=== PATIENT | male | born 1960 | race American Indian/Alaskan Native ===

== ENCOUNTER 2018-08-13 23:13 | Emergency (ER) | payer SELFPAY ==
[~2018-08-13] VITALS: Ht 175.3 cm; Wt 99.8 kg
[2018-08-13] MEDS ORDERED: ALBUTEROL SULF 0.083% NEB SOLN 3 ML NEB NEB STA (23:21)
[2018-08-13] MEDS ORDERED: METHYLPREDNISOLONE SOD SUCC 125 MG/2ML VIAL IV ONE (23:30)
[2018-08-13] MEDS ORDERED: IPRATROPIUM BROMIDE 0.02% 2.5 ML NEB NEB ONE (23:30)
[2018-08-13 23:56] LABS: BASOPHILS # (AUTO) 0.1 (0.0-0.1); BASOPHILS % 0.8 % (0.0-1.0); EOSINOPHILS # (AUTO) 1.2 (0.0-0.4); HEMATOCRIT 41.9 % (38.2-49.6); HEMOGLOBIN 13.8 g/dL (14.0-18.0); LYMPHOCYTES # (AUTO) 2.8 (1.0-3.2); LYMPHOCYTES % 16.7 % (18.0-39.1); MEAN CORPUSCULAR HEMOGLOBIN 28.8 pg (28-32); MEAN CORPUSCULAR HGB CONC 32.9 g/dL (31-35); MEAN CORPUSCULAR VOLUME 87.3 fL (81-99); NEUTROPHILS # (AUTO) 11.5 (2.1-6.9); NEUTROPHILS % 69.1 % (38.7-80.0); PLATELET COUNT 307 x10e3/uL (140-360); RED CELL DISTRIBUTION WIDTH 13.2 % (11.7-14.4)
[2018-08-14 00:17] LABS: ALANINE AMINOTRANSFERASE 37 IU/L (0-55); ALBUMIN 3.6 g/dL (3.5-5.0); ALKALINE PHOSPHATASE 113 IU/L (40-150); ANION GAP 13.6 mmol/L (8-16); BLOOD UREA NITROGEN 11 mg/dL (7-26); BUN/CREATININE RATIO 13 (6-25); CARBON DIOXIDE 28 mmol/L (22-29); CHLORIDE 99 mmol/L (98-107); CREATINE KINASE 50 IU/L (30-200); CREATININE, SERUM 0.88 mg/dL (0.72-1.25); EST GLOMERULAR FILTRATION RATE > 60 ML/MIN (60-); GLUCOSE 164 mg/dL (74-118); POTASSIUM 3.6 mmol/L (3.5-5.1); SODIUM 137 mmol/L (136-145)
--- NOTE | 2018-08-14 00:28 | Diagnostic Imaging Report ---
Examination: Single AP view of the chest. COMPARISON: None. INDICATION: Asthma DISCUSSION: Lines/tubes: None. Lungs: The lungs are well inflated and clear. No pneumonia or pulmonary edema. Pleura: No pleural effusion or pneumothorax. Heart and mediastinum: The heart and the mediastinum are unremarkable. Bones and soft tissues: No acute bony abnormalities. IMPRESSION: 1. No acute cardiopulmonary abnormalities. Signed by: Dr. Octavio Ramírez M.D. on 08/14/2018 12:25 AM
[2018-08-14] MEDS ORDERED: SODIUM CHLORIDE 0.9% 1000ML 1,000 ML IV ONE (01:45)
[2018-08-14] MEDS ORDERED: ALBUTEROL SULF 0.083% NEB SOLN 3 ML NEB NEB STA (02:29)
[2018-08-14] MEDS ORDERED: IPRATROPIUM BROMIDE 0.02% 2.5 ML NEB NEB ONE (02:30)
[2018-08-14 03:13] VITALS: BP 121/65
== END 2018-08-14 03:45 | disposition home or self-care (01) ==
LOC: ER 23:13
DX: R06.00 Dyspnea, unspecified (principal); J45.31 Mild persistent asthma with (acute) exacerbation; F17.210 Nicotine dependence, cigarettes, uncomplicated
CPT/HCPCS: 36415; 71045; 80053; 82550; 82553; 83880; 84484; 85025; 93005; 94640 ×2; 96374; 99284; J2930; J7030

== ENCOUNTER 2024-07-24 15:34 | Inpatient (IN) | payer MEDICAID, MEDICARE ==
[~2024-07-24] VITALS: Ht 175.3 cm; Wt 106.1 kg
[~2024-07-24 15:34] MED LIST: AMITRIPTYLINE H25 MG; CELECOXIB200 MG; CEPHALEXIN500 MG PO; DILTIAZEM 24HR240 M1; FA-80.8 MG; HUMIRA40 MG/0.1; HYDROCODON-ACE1 EA11 PO; HYDROXYCHLOROQ200 MG PO; LOSARTAN-HCTZ1 EAC1; METHOTREXATE2.5 MG; PREDNISONE10 MG; PREGABALIN75 MG PO; TIZANIDINE HCL4 MG; TRELEGY ELLIPT1 EACH; ULTRAM 50MG50 MG; VENTOLIN HFA18 GM INH
[2024-07-24 15:55] VITALS: TEMP 97.7
[2024-07-24] MEDS: METHYLPREDNISOLONE SOD SUCC 125 MG/2ML VIAL IV ONE (16:36)
[2024-07-24] MEDS: ALBUTEROL/IPRATROPIUM 3 ML NEB NEB PRN (16:41)
[2024-07-24] MEDS: Vancomycin IV 1 GM in SODIUM CHLORIDE 0.9% 250ML 250 ML IV ONE (18:11)
[2024-07-24] MEDS: SODIUM CHLORIDE 0.9% 1000ML 1,000 ML IV SCH (18:12)
[2024-07-24 18:47] LABS: CREATINE KINASE 61 IU/L (30-200)
[2024-07-24 18:54] VITALS: PULSE 61; RESP 20
[2024-07-24 18:55] LABS: TROPONIN I < 0.001 ng/mL (0-0.300)
[2024-07-24 19:38] VITALS: BP 110/69; PULSE 92; RESP 20; TEMP 98.9; O2SAT 100
[2024-07-24 20:56] VITALS: PULSE 67; RESP 18; O2SAT 97
[2024-07-24] MEDS: ALBUTEROL SULF 0.083% NEB SOLN 3 ML NEB NEB SCH (20:57)
[2024-07-24] MEDS: IPRATROPIUM BROMIDE 0.02% 2.5 ML NEB NEB SCH (20:58)
[2024-07-24 21:00] VITALS: BP 110/69; PULSE 67; RESP 18; TEMP 98.9; O2SAT 97
[2024-07-24] MEDS: ASPIRIN 81 MG CHEW TAB PO ONE ×2 (23:46→23:49)
[2024-07-24] MEDS: CEFEPIME 2 GM in SODIUM CHLORIDE 0.9% 100 ML IV ONE ×2 (23:47→23:49)
[2024-07-24 23:50] VITALS: BP 110/69; PULSE 61; RESP 16; TEMP 98.9; O2SAT 97
[2024-07-25] VITALS (14 sets, daily range): BP systolic 96–130; BP diastolic 60–81; PULSE 55–99; RESP 17–20; TEMP 96–98.1; O2SAT 92–100
[2024-07-25 05:10] LABS: HEMATOCRIT 35.1 % (38.2-49.6); HEMOGLOBIN 11.5 g/dL (14.0-18.0); LYMPHOCYTES # (AUTO) 0.8 (1.0-3.2); MEAN CORPUSCULAR HEMOGLOBIN 30.1 pg (28-32); MEAN CORPUSCULAR HGB CONC 32.8 g/dL (31-35); MEAN CORPUSCULAR VOLUME 91.9 fL (81-99); MONOCYTES # (AUTO) 0.1 (0.2-0.8); MONOCYTES % 1.2 % (4.4-11.3); NEUTROPHILS % 86.9 % (38.7-80.0); PLATELET COUNT 182 x10e3/uL (140-360); RED BLOOD COUNT 3.82 x10e6/uL (4.3-5.7); RED CELL DISTRIBUTION WIDTH 14.3 % (11.7-14.4); WHITE BLOOD COUNT 6.92 x10e3/uL (4.8-10.8)
[2024-07-25 05:44] LABS: ANION GAP 16.5 mmol/L (8-16); CALCIUM 9.2 mg/dL (8.4-10.2); CREATININE, SERUM 2.73 mg/dL (0.72-1.25); POTASSIUM 4.5 mmol/L (3.5-5.1)
[2024-07-25 06:18] LABS: TROPONIN I 0.011 ng/mL (0-0.300)
[2024-07-25] MEDS ORDERED: CYCLOBENZAPRINE10 MG PO (07:33)
[2024-07-25] MEDS ORDERED: LIDOCAINE 4% PATCH TP PRN (11:15)
[2024-07-25] MEDS ORDERED: DIPHENHYDRAMINE HCL 25 MG CAP PO PRN (11:15)
[2024-07-25] MEDS ORDERED: HYDRALAZINE HCL 20 MG/ML VIAL IV PRN (11:15)
[2024-07-25] MEDS ORDERED: ONDANSETRON HCL INJ 2MG/ML 2ML 2 MG/ML VIAL IV PRN (11:15)
[2024-07-25] MEDS ORDERED: SIMETHICONE 80 MG CHEW PO PRN (11:15)
[2024-07-25] MEDS ORDERED: DEXTROSE 50% SYRINGE 50 ML IV PRN (11:15)
[2024-07-25] MEDS ORDERED: BENZONATATE 100 MG CAP PO PRN (11:15)
[2024-07-25] MEDS ORDERED: POTASSIUM CHLORIDE 20 MEQ TAB CR PO PRN (11:15)
[2024-07-25] MEDS ORDERED: ALBUTEROL/IPRATROPIUM 3 ML NEB NEB PRN (11:15)
[2024-07-25] MEDS ORDERED: ACETAMINOPHEN 325 MG TAB PO PRN (11:15)
[2024-07-25] MEDS ORDERED: Doxycycline IV 100 MG in SODIUM CHLORIDE 0.9% 100 ML IV SCH (11:45)
[2024-07-25] MEDS: PANTOPRAZOLE SODIUM 20 MG TABLET.DR PO SCH (13:12)
[2024-07-25] MEDS: AZITHROMYCIN 250 MG TAB PO ONE (13:12)
[2024-07-25] MEDS ORDERED: CALCIUM CARBONATE 500 MG CHEWABLE TABS PO PRN (14:45)
[2024-07-25] MEDS: METHYLPREDNISOLONE SOD SUCC 40 MG/ML VIAL 1ML IV SCH (15:00)
[2024-07-25] MEDS: ENOXAPARIN SOD INJ 40 MG/0.4 ML SYR SC SCH (17:24)
[2024-07-25] MEDS: HYDROXYCHLOROQUINE SULFATE 200 MG TAB PO SCH (17:24)
[2024-07-25] MEDS: PREGABALIN 75 MG CAP PO SCH (17:24)
[2024-07-25] MEDS ORDERED: Vancomycin IV 1 GM in SODIUM CHLORIDE 0.9% 250ML 250 ML IV SCH (17:30)
[2024-07-25 17:41] LABS: TROPONIN I 0.022 ng/mL (0-0.300)
[2024-07-25] MEDS ORDERED: HYDROCODONE/APAP 5MG-325MG TAB PO PRN (21:45)
[2024-07-25] MEDS: HYDROCODONE/APAP 10MG-325MG TAB PO PRN (22:05)
[2024-07-26] VITALS (10 sets, daily range): BP systolic 106–117; BP diastolic 57–78; PULSE 60–81; RESP 16–22; TEMP 97.3–98.2; O2SAT 96–100
[2024-07-26] MEDS: Vancomycin IV 1 GM in SODIUM CHLORIDE 0.9% 250ML 250 ML IV SCH (00:02)
[2024-07-26 05:15] LABS: HEMATOCRIT 30.4 % (38.2-49.6); LYMPHOCYTES # (AUTO) 0.8 (1.0-3.2); LYMPHOCYTES % 7.4 % (18.0-39.1); MEAN CORPUSCULAR HEMOGLOBIN 30.5 pg (28-32); MEAN CORPUSCULAR HGB CONC 32.9 g/dL (31-35); MEAN CORPUSCULAR VOLUME 92.7 fL (81-99); MONOCYTES # (AUTO) 0.4 (0.2-0.8); MONOCYTES % 3.5 % (4.4-11.3); NEUTROPHILS # (AUTO) 9.7 (2.1-6.9); PLATELET COUNT 161 x10e3/uL (140-360); RED BLOOD COUNT 3.28 x10e6/uL (4.3-5.7); RED CELL DISTRIBUTION WIDTH 15.1 % (11.7-14.4); WHITE BLOOD COUNT 11.01 x10e3/uL (4.8-10.8)
[2024-07-26 05:45] LABS: ANION GAP 14.5 mmol/L (8-16); CALCIUM 9.3 mg/dL (8.4-10.2); CREATININE, SERUM 1.92 mg/dL (0.72-1.25); POTASSIUM 4.5 mmol/L (3.5-5.1)
[2024-07-26 07:35] LABS: ABG HCO3 26 mmol/L (22-26); ABG PCO2 47 mmHg (35-45); ABG PH 7.35 (7.35-7.45); ABG PO2 34 mmHg (80-105); ABG TCO2 27
[2024-07-26] MEDS: DOCUSATE SODIUM 100 MG CAP PO PRN (08:22)
[2024-07-26] MEDS: PANTOPRAZOLE SOD 40 MG TABEC PO SCH (08:22)
[2024-07-26] MEDS: AZITHROMYCIN 250 MG TAB PO SCH (08:22)
[2024-07-26] MEDS: AMITRIPTYLINE HCL 25 MG TAB PO SCH ×2 (08:23→22:30)
[2024-07-26] MEDS: DILTIAZEM HCL ER 120 MG CAP PO SCH (08:23)
[2024-07-26] MEDS: FOLIC ACID 1 MG TAB PO SCH (14:48)
[2024-07-26] MEDS ORDERED: CELECOXIB 200 MG CAP PO SCH (17:00)
[2024-07-27] VITALS (11 sets, daily range): BP systolic 107–179; BP diastolic 55–83; PULSE 56–78; RESP 18–20; TEMP 97.6–98.7; O2SAT 95–100
[2024-07-27] MEDS: METHYLPREDNISOLONE SOD SUCC 40 MG/ML VIAL 1ML IV SCH (15:39)
[2024-07-27] MEDS ORDERED: AMITRIPTYLINE HCL 25 MG TAB PO SCH (21:45)
[2024-07-27] MEDS: AMITRIPTYLINE HCL 25 MG TAB PO ONE (22:10)
[2024-07-28] VITALS (9 sets, daily range): BP systolic 112–153; BP diastolic 65–92; PULSE 66–82; RESP 17–20; TEMP 97.7–98.3; O2SAT 94–100
[2024-07-28 10:58] LABS: HEMOGLOBIN 9.1 g/dL (14.0-18.0)
[2024-07-28 10:59] LABS: ANION GAP 14.4 mmol/L (8-16); CALCIUM 8.4 mg/dL (8.4-10.2); CREATININE, SERUM 1.14 mg/dL (0.72-1.25); HEMATOCRIT 27.4 % (38.2-49.6); POTASSIUM 4.4 mmol/L (3.5-5.1)
[2024-07-28] MEDS: MELATONIN 5 MG TABLET PO PRN (21:45)
[2024-07-29] VITALS: BP 132/72; PULSE 60; RESP 20; TEMP 98.2; O2SAT 98
[2024-07-29 04:00] VITALS: BP 128/71; PULSE 62; RESP 18; TEMP 97.7; O2SAT 97
[2024-07-29 06:23] LABS: HEMATOCRIT 27.9 % (38.2-49.6); HEMOGLOBIN 9.4 g/dL (14.0-18.0)
[2024-07-29 06:42] LABS: ANION GAP 12.3 mmol/L (8-16); CALCIUM 8.3 mg/dL (8.4-10.2); CREATININE, SERUM 0.93 mg/dL (0.72-1.25); POTASSIUM 4.3 mmol/L (3.5-5.1)
[2024-07-29 08:00] VITALS: BP 100/72; PULSE 79; RESP 17; TEMP 97.6; O2SAT 98
[2024-07-29 08:55] VITALS: PULSE 85; RESP 16; O2SAT 99
[2024-07-29 10:42] VITALS: BP 128/71; PULSE 85; RESP 16; TEMP 97.6; O2SAT 99
[2024-07-29 12:00] VITALS: BP 128/74; PULSE 70; RESP 21; TEMP 98.1; O2SAT 99
[2024-07-29] MEDS ORDERED: AMOX TR-K CLV1 EAC2 PO (12:42)
== END 2024-07-29 13:16 | disposition home or self-care (01) | DRG 193 ==
LOC: FSED 15:39 → ERHOLD 17:30 → MED/SURG2 20:16
PROVIDERS: ADMIT Internal Medicine; ATTEND Internal Medicine
PROC: 4A133R1 Monitoring of Arterial Saturation, Peripheral, Percutaneous Approach (ICD-10-PCS; principal; 2024-07-24)
PROC: 02HV33Z Insertion of Infusion Device into Superior Vena Cava, Percutaneous Approach (ICD-10-PCS; 2024-07-25)
DX: J18.9 Pneumonia, unspecified organism (principal); J96.01 Acute respiratory failure with hypoxia; J44.0 Chronic obstructive pulmonary disease with (acute) lower respiratory infection; N17.9 Acute kidney failure, unspecified; J44.1 Chronic obstructive pulmonary disease with (acute) exacerbation; E11.9 Type 2 diabetes mellitus without complications; I10 Essential (primary) hypertension; E78.5 Hyperlipidemia, unspecified; M06.9 Rheumatoid arthritis, unspecified; E66.9 Obesity, unspecified; Z68.34 Body mass index [BMI] 34.0-34.9, adult; Z11.52 Encounter for screening for COVID-19; Z79.4 Long term (current) use of insulin; Z79.51 Long term (current) use of inhaled steroids; Z79.52 Long term (current) use of systemic steroids; Z87.891 Personal history of nicotine dependence
CPT/HCPCS: 36415; 36568; 71250; 80048; 80076; 80202; 82550; 82553; 82805; 83605; 83880; 84484; 85014; 85018; 85025; 85610; 87040; 87070; 87205; 87400; 93005; 93306; 94640; 94799; 99252; 99284; J0692; J1650; J2470; J2919; J7030; J7050